=== PATIENT | male | born 1960 | race Caucasian/White ===

== ENCOUNTER → 2018-08-28 | Day surgery (SDC) | payer OTHER ==
[~2018-08-28] MED LIST: ASPIRIN EC 325 MG TAB PO ONE; DIAZEPAM 5 MG TAB ONE; DIAZEPAM 5 MG TAB PO ONE; FAMOTIDINE 20 MG TAB ONE; FAMOTIDINE 20 MG TAB PO ONE; HEPARIN 10,000 UNIT/10 ML MDV (1,000 UNIT/ML) ONE; IOPAMIDOL (ISOVUE-370) 150 ML BTL IV ONE; LIDOCAINE 1% 300 MG/30 ML SDV ONE; MIDAZOLAM 2 MG/2 ML VIAL ONE; NS 1,000 ML IV ONE; VERAPAMIL 5 MG/2 ML VIAL ONE; diphenhydrAMINE 25 MG CAP PO ONE; fentaNYL 100 MCG/2 ML INJ ONE
[2018-08-28 07:17] LABS: PLATELET COUNT 157 10^3/uL (150-400)
[2018-08-28 07:28] LABS: INR 0.93 (0.83-1.16); PROTIME(PATIENT) 12.7 SEC (12.0-15.0)
--- NOTE | 2018-08-28 08:07 | PDPROPOC ---
Sedation Plan of Care Sedation Plan of Care: vital signs stable, mental status noted, patient educated of risks, benefits, alternatives, patient can tolerate sedation ASA Classification: ASA 2 Planned drugs: fentanyl, midazolam Mallampati Score: Class 1 Mallampati Reference Image: Patient passed 3-3-2 rule?: Yes
--- NOTE | 2018-08-28 08:07 | PDHPUP ---
History & Physical Update H&P update statement: This history and physical update is based on an assessment of the patient which was completed after admission or registration (within 24 hours), but prior to the surgery/procedure. H&P update: H&P reviewed & patient examined, no change in patient's condition since H&P completed
--- NOTE | 2018-08-28 09:22 | CPEKG ---
Test Reason : OPEN Blood Pressure : / mmHG Vent. Rate : 058 BPM Atrial Rate : 058 BPM P-R Int : 158 ms QRS Dur : 111 ms QT Int : 431 ms P-R-T Axes : 064 053 027 degrees QTc Int : 424 ms Sinus rhythm Left ventricular hypertrophy Confirmed by Veto Varma ([id number]) on 08/28/2018 9:21:49 AM Referred By: SHAWNEE GIPSON Confirmed By:Veto Varma
--- NOTE | 2018-08-28 12:57 | PDDXCAT ---
Diagnostic Cath Note - . Date: 08/28/18 [employer] Assistant Department Head: Nilson Indication: other (Known coronary disease by imaging) High-risk criteria on non-invasive testing: stress-induced moderate-size multiple perfusion defects - Procedure Access: right wrist Procedure: left heart catheterization, coronary angiography, left ventriculogram - Materials Left Heart Cath size: 5F Left Heart Cath materials: pigtail, other (5 [place] tiger catheter\) - Findings-Left Heart Catheterization LM: Unobstructed LAD: Unobstructed LCX: Dominant: Unobstructed RCA: Non dominant: Unobstructed EDP: 12 mm of mercury LVEF: 64% Wall motion: Normal Estimated blood loss: <50ml Closure method: TR Band Assessment: Mild nonobstructive atherosclerotic cardiovascular disease. Preserved left ventricular systolic function with normal filling pressures. Plan: Aggressive secondary prevention clinical follow-up
== END | disposition home or self-care (01) ==
LOC: FCATH 06:29
PROVIDERS: ATTEND Internal Medicine Interventional Cardiology
DX: R93.1 Abnormal findings on diagnostic imaging of heart and coronary circulation (principal); G47.30 Sleep apnea, unspecified; E66.3 Overweight; L57.0 Actinic keratosis; Z82.49 Family history of ischemic heart disease and other diseases of the circulatory system; Z80.42 Family history of malignant neoplasm of prostate
CPT/HCPCS: 93005; 93458; C1769; J1644; J2250; J3010; Q9967